=== PATIENT | male | born 1985 ===

== ENCOUNTER 2021-02-26 01:15 | Outpatient (CLI) | payer OTHER, SELFPAY ==
--- NOTE | 2021-02-26 | ETT_ITS ---
APPROVED REPORT Exam: Exercise Treadmill Patient Location: Out-Patient Room/Bed: Stress Nurse: Katey Delacruz RN Ordering Provider:JUANCHO GIANG, Contact Number: [phone] BMI: 25.05 Baseline Rhythm: Sinus Rhythm Comment: inverted T wave lead III Indications: Atypical chest pain. Medical History Medical History: Anxiety, Tobacco use Cardiac Medications: None. Allergies: No known drug allergies Cardiac Risk Factors: Smoking (current) Previous Cardiac Procedures: None Pretest Chest Pain Characteristics: No chest pain Exercise History: Sedentary Physical Disabilities: Chronic back and shoulder pain. Lung Sounds: Clear to auscultation Heart Sounds: Regular Stress Test Details Test: Exercise stress testing was performed using a Jonathan protocol. Rest Stress HR Resting HR Supine: 91 bpm Max Heart Rate (APMHR): 184 bpm Resting HR Standin bpm Target HR (85% APMHR): 156 bpm Max HR Achieved: 174 bpm % of APMHR: 94 Recovery HR: 99 bpm HR response to stress: Normal HR response to stress BP Resting BP Supine: 128/74 mmHg Resting BP Standin/90 mmHg Max BP: 160/74 mmHg Recovery BP: 126/82 mmHg BP response to stress: Normal blood pressure response to stress. ECG Resting ECG: Sinus Rhythm Ectopy: None Comment: inverted T wave in lead III Stress ECG: Sinus Tachycardia ST Change: No significant ST segment changes noted Arrhythmia: None Recovery ECG: Sinus Rhythm/Tachycardia Recovery ST Change: No significant ST segment changes noted Recovery Arrhythmia: None Clinical Reason for Termination: Fatigue, Leg pain Stress Symptoms: None Exercise duration: 10 min54 sec Highest Stage Reached: Stage 4: 4.2 mph at 16% grade. Exercise capacity: 13.3 METs [place] Treadmill Score: 10.5 Rate Pressure Product: [id number] Stress ECG Conclusion 1. The patient exercised for 11 minutes (13.3 METS). Exercise was stopped due to fatigue. 2. Heart rate and blood pressure augmented appropriately. 3. Patient no symptoms suggestive of ischemia. 4. There is no evidence of ischemia on the ECG portion of the exam. [place] Treadmill Score is 10.5 which is Low risk. Stress Test Summary STAGE Time (mins) Speed (mph) Grade (%) HR BP SYMPTOMS METS Supine 91 128/74 Standing 89 130/90 1 3 1.7 10 117 132/80 4.6 2 6 2.5 12 132 144/76 7 3 9 3.4 14 152 152/70 10.2 1 min recovery 140 160/74 3 min recovery 101 144/76 6 min recovery 99 126/82
== END 2021-02-26 01:35 ==
PROVIDERS: Visit Provider Emergency Medicine
DX: R07.89 Other chest pain (principal); F17.210 Nicotine dependence, cigarettes, uncomplicated
CPT/HCPCS: 93017